=== PATIENT | female | born 1975 | race Caucasian/White ===

== ENCOUNTER 2017-03-02 20:58 | Emergency (ER) | payer MEDICARE, OTHER, BC ==
[2017-03-02] MEDS ORDERED: HYDROCODONE/ACETAMINOPHEN 5/325MG TABLET ONE (21:31)
--- NOTE | 2017-03-03 08:07 | RAD ---
HISTORY: Inversion injury. Lateral pain. Initial encounter. COMPARISON: None TECHNIQUE:Three views Foot Laterality:Left FINDINGS: Bones: 6 mm plantar spur. No fracture or dislocation. Joints: Normal. Soft tissue: Normal IMPRESSION: No fracture or dislocation. 03/03/2017 8:02 AM FOOT LEFT 3 VIEWS, ANKLE-LEFT 3 VIEW History: Inversion injury. Initial encounter. Technique: 3 view Ankle Side:Left Comparison: None Findings: Bones: Avulsion fracture along the tip of the lateral malleolus is identified. Fracture fragment is minimally displaced. Probable old fracture to the medial malleolus is identified versus secondary ossification center. Spurring along the anterior tibial plafond and is also present. 6 mm heel spur. Joints: The ankle mortise is normally aligned. Joints:Remaining joints are unremarkable. Associated Findings: Lateral soft tissue swelling. Small ankle joint effusion. Impression: 1. Avulsion fracture along the tip of the lateral malleolus. Degenerative and other findings as above.
== END 2017-03-02 22:17 | disposition home or self-care (01) ==
LOC: ED 20:58
DX: S99.912A Unspecified injury of left ankle, initial encounter (principal); W19.XXXA Unspecified fall, initial encounter; K21.9 Gastro-esophageal reflux disease without esophagitis; I10 Essential (primary) hypertension; Z87.820 Personal history of traumatic brain injury; F17.210 Nicotine dependence, cigarettes, uncomplicated; Z79.899 Other long term (current) drug therapy; Z91.041 Radiographic dye allergy status
CPT/HCPCS: 73610; 73630; 99283 ×2; 29515; A9270